=== PATIENT | male | born 1995 | race Caucasian/White ===

== ENCOUNTER 2022-11-27 01:08 | Emergency (ER) | payer OTHER, MEDICAID, SELFPAY ==
[2022-11-27 01:28] VITALS: BP 127/79; PULSE 109; RESP 17; TEMP 37.2; O2SAT 98
[2022-11-27 02:39] VITALS: BP 124/81; PULSE 103; RESP 16; O2SAT 100
[2022-11-27] MEDS: SODIUM CHLORIDE 0.9% IV 1,000 ML 999 ML IV CONT (03:20)
[2022-11-27] MEDS: BELLADONNA ALK/PHENOB ELIX 10 ML, MAG HYDROX/ALUMINUM HYD/SIMETH 30 ML, LIDOCAINE HCL 2... PO (03:21)
[2022-11-27 03:40] LABS: Basophils Percent Auto 0.3 % (0.2-1.2); Eosinophils Absolute Auto 0.1 K/mm3 (0-0.3); Eosinophils Percent Auto 0.7 % (0-4.4); Hemoglobin 14.1 g/dL (14.0-18.0); Immature Granulocyte Absolute 0.03 K/mm3 (0.00-0.031); Immature Granulocyte Percent A 0.3 % (0-0.5); Lymphocytes Absolute Auto 3.31 K/mm3 (0.9-3.2); Lymphocytes Percent Auto 38.3 % (18.3-44.2); Mean Corpuscular HGB Conc 32.8 g/dl (32-36); Mean Corpuscular Volume 91.5 fl (80-100); Mean Platelet Volume 9.8 fl (7.4-10.4); Neutrophils Absolute Auto 4.3 K/mm3 (1.3-6.7); Neutrophils Percent Auto 49.4 % (45.5-73.1); Platelet Count Result 257 k/mm3 (150-375); White Blood Count 8.7 K/mm3 (4.5-10.0)
[2022-11-27 03:50] LABS: Lactic Acid Reflex 1.1 mmol/L (0.7-2.0)
--- NOTE | 2022-11-27 04:11 | ED.GENADULT ---
HPI - General Adult General Chief complaint: Dental/Oral Stated complaint: mouth pain, unalbe to eat Time Seen by Provider: 11/27/22 02:53 History of Present Illness HPI narrative: Who presents the emergency department with chief complaint of sore throat and mouth pain. The patient reports he was recently seen by his primary care provider diagnosed with pharyngitis started on steroids and also started on an antibiotic. The patient states that he has noticed that his gums have become sore his tongue is sore and his mouth has been uncomfortable the patient states it hurts whenever he eats and drinks patient states that he is still able to swallow his own secretions patient reports that he tested negative for COVID and negative for strep in the office Related Data Home Medications Medication Instructions Recorded Confirmed amoxicillin 875 mg-potassium tablet 11/27/22 clavulanate 125 mg tablet prednisone 20 mg tablet mg 11/27/22 Allergies Allergy/AdvReac Type Severity Reaction Status Date / Time No Known Allergies Allergy Verified 11/27/22 01:32 Review of Systems Review of Systems: A 10 system review of systems was completed on the patient and is negative except for what is stated in the HPI. Nursing and ancillary documentation was reviewed. Exam Narrative: GENERAL: Well-appearing, well-nourished, and in no acute distress. HEAD: Normocephalic, atraumatic. EYES: PERRLA and EOMI. ENT: Nares clear, no rhinorrhea or epistaxis. Mucous membranes moist. Slight ulcerations present in the mouth NECK: Supple. CHEST: Clear to auscultation. No respiratory distress. HEART: Regular rate and rhythm. No murmur heard. Normal peripheral pulses. ABDOMEN: Soft, nontender, nondistended, normal active bowel sounds. EXTREMITIES: Normal range of motion. No edema. SKIN: Warm, dry, no rash. NEURO: No focal deficits. Alert and oriented x3. PSYCH: Normal mood and affect. Course Vital Signs Vital signs: Vital Signs Temperature 37.2 C 11/27/22 01:28 Pulse Rate 109 H 11/27/22 01:28 Respiratory Rate 17 11/27/22 01:28 Blood Pressure 127/79 11/27/22 01:28 Pulse Oximetry 98 11/27/22 01:28 Oxygen Delivery Room Air 11/27/22 01:28 Temperature 37.2 C 11/27/22 01:28 Pulse Rate 92 11/27/22 04:24 Respiratory Rate 16 11/27/22 04:24 Blood Pressure 124/73 11/27/22 04:24 Pulse Oximetry 100 11/27/22 04:24 Oxygen Delivery Room Air 11/27/22 01:28 Medical Decision Making MDM Narrative Medical decision making narrative: Differential diagnosis includes strep pharyngitis, peritonsillar abscess, retropharyngeal abscess. Gingivostomatitis mono Patient's exam was not consistent with retropharyngeal abscess or peritonsillar abscess. Patient's laboratory studies showed normal electrolytes CBC white count was 8.7. Monotest was negative Patient received IV fluids and was given lidocaine and a GI cocktail. Vital Signs Vital Signs: Vital Signs Temperature 37.2 C 11/27/22 01:28 Pulse Rate 109 H 11/27/22 01:28 Respiratory Rate 17 11/27/22 01:28 Blood Pressure 127/79 11/27/22 01:28 Pulse Oximetry 98 11/27/22 01:28 Oxygen Delivery Room Air 11/27/22 01:28 Temperature 37.2 C 11/27/22 01:28 Pulse Rate 92 11/27/22 04:24 Respiratory Rate 16 11/27/22 04:24 Blood Pressure 124/73 11/27/22 04:24 Pulse Oximetry 100 11/27/22 04:24 Oxygen Delivery Room Air 11/27/22 01:28 Lab Data 11/27/22 03:28 11/27/22 03:28 Labs: Lab Results 11/27/22 11/27/22 11/27/22 Range/Units 03:28 03:28 03:28 WBC 8.7 (4.5-10.0) K/mm3 RBC 4.70 (4.6-6.20) M/mm3 Hgb 14.1 (14.0-18.0) g/dL Hct 43.0 (42.0-52.0) % MCV 91.5 (80-100) fl MCH 30.0 (26-34) pg MCHC 32.8 (32-36) g/dl RDW 12.0 (11.5-14.5) % Plt Count 257 (150-375) k/mm3 MPV 9.8 (7.4-10.4) fl Immature Gran % (Auto) 0.3 (0-0.5) % Neut % (Auto)
[2022-11-27 04:15] LABS: Alanine Aminotransferase 48 U/L (6-50); Albumin Level 4.3 g/dL (3.5-5.1); Alkaline Phosphatase 89 U/L (38-126); Anion Gap 5 mmol/L (8-16); Aspartate Amino Transferase 24 U/L (17-59); Bilirubin,Total 0.5 mg/dL (0.2-1.3); Blood Urea Nitrogen 13 mg/dL (9-20); Carbon Dioxide 35 mmol/L (22-30); Chloride 99 mmol/L (98-107); Estimated CRCL calculation 137 ml/min; Estimated Glomerular Filt Rate > 60; Glucose 97 mg/dL (65-110); Potassium 3.5 mmol/L (3.4-5.0); Sodium 139 mmol/L (137-145)
[2022-11-27 04:23] LABS: Platelet Estimate Adequate (Adequate)
[2022-11-27 04:24] VITALS: BP 124/73; PULSE 92; RESP 16; O2SAT 100
[2022-11-27 04:24] LABS: Anisocytosis 1+ (NORMAL); Atypical Lymphocytes Present; Monoscreen Negative (Negative); Negative Monotest Control Negative (Negative); Positive Monotest Control Positive (Positive); Schistocytes None Seen (NORMAL)
== END 2022-11-27 05:18 | disposition home or self-care (01) ==
PROVIDERS: Emergency Provider Emergency Medicine
DX: K05.10 Chronic gingivitis, plaque induced (principal)
CPT/HCPCS: 36415; 80053; 83605; 85025; 86308; 96361; 96374; 99284; A9270; J1100; J7030

== ENCOUNTER 2024-08-15 14:31 | Emergency (ER) | payer OTHER, MEDICAID, SELFPAY ==
[2024-08-15 15:05] VITALS: BP 101/72; PULSE 97; RESP 16; TEMP 36.6; O2SAT 99
--- NOTE | 2024-08-15 15:05 | ECG_ITS ---
Test Date: 2024-08-15 15:26:32 Measurements Intervals [place] Rate: 108 P: 72 OK: 110 QRS: 82 QRSD: 89 T: 63 QT: 326 QTc: 439 Interpretive Statements SINUS TACHYCARDIA WITH SHORT OK INTERVAL ABNORMAL RHYTHM ECG No previous ECG available for comparison Electronically Signed On 08-19-2024 14:34:20 ANIMATION ARTIST by Weston Ayala M.D.
--- NOTE | 2024-08-15 15:06 | ED.NAVMDI ---
HPI - Nausea/Vomiting/Diarrhea General Chief complaint: Nausea/Vomiting/Diarrhea Stated complaint: N/V/Zr3stox, food poisoning? Focused HPI: 29-year-old male presents to the emergency department via EMS for N/V/D that started this morning. Patient states he has multiple bouts of diarrhea and vomiting. States he was in the bathroom when he began to feel very lightheaded and had cold sweats felt like he was about to pass out. States he stumbled into his bedroom and hit his left lafleur on a wall obtained a laceration to the left lafleur. Last Tdap unknown. States he then began to feel tingling all over and contacted EMS was transported to the ED. He notes that he was diagnosed with mono 2 weeks ago. He denies any abdominal pain, fever. GENERAL: Well-appearing, well-nourished, and in no acute distress. HEAD: Normocephalic, atraumatic. CHEST: Clear to auscultation. ?No respiratory distress. HEART: Regular rate and rhythm.? NEURO: ?Alert and oriented x3. Patient screened in triage and initial orders placed.? ?Additional care and disposition to be based upon?diagnostic testing and treatment. Related Data Home Medications ?Medication ?Instructions ?Recorded ?Confirmed ?Last Taken ?Type amoxicillin 875 mg-potassium tablet 11/27/22 Unknown History clavulanate 125 mg tablet prednisone 20 mg tablet mg 11/27/22 Unknown History Allergies Allergy/AdvReac Type Severity Reaction Status Date / Time No Known Allergies Allergy Verified 11/27/22 01:32 Course Vital Signs Vital signs: Vital Signs Temperature 97.9 F 08/15/24 15:05 Pulse Rate 97 08/15/24 15:05 Respiratory Rate 16 08/15/24 15:05 Blood Pressure 101/72 08/15/24 15:05 Pulse Oximetry 99 08/15/24 15:05 Oxygen Delivery Room Air 08/15/24 15:05 Temperature 97.6 F 08/15/24 17:43 Pulse Rate 108 H 08/15/24 17:43 Respiratory Rate 18 08/15/24 17:43 Blood Pressure 135/110 H 08/15/24 17:43 Pulse Oximetry 100 08/15/24 17:43 Oxygen Delivery Room Air 08/15/24 15:05 MDM - Nausea/Vomiting/Diarrhea Lab Data 08/15/24 15:26 08/15/24 15:26 Labs: Lab Results 08/15/24 Range/Units 15:26 WBC 15.4 H (4.5-10.0) K/mm3 RBC 4.60 (4.6-6.20) M/mm3 Hgb 14.4 (14.0-18.0) g/dL Hct 42.2 (42.0-52.0) % MCV 91.7 (80-100) fl MCH 31.3 (26-34) pg MCHC 34.1 (32-36) g/dl RDW 12.9 (11.5-14.5) % Plt Count 205 (150-375) k/mm3 MPV 9.3 (7.4-10.4) fl Immature Gran % (Auto) 0.5 (0-0.5) % Neut % (Auto) 87.8 H (45.5-73.1) % Lymph % (Auto) 5.7 L (18.3-44.2) % [place] % (Auto) 5.5 (2.6-8.5) % Eos % (Auto) 0.3 (0-4.4) % Baso % (Auto) 0.2 (0.2-1.2) % Lymph # (Auto) 0.88 L (0.9-3.2) K/mm3 [place] # (Auto) 0.8 H (0.1-0.6) K/mm3 Eos # (Auto) 0.1 (0-0.3) K/mm3 Baso # (Auto) 0.0 (0.0-0.1) K/mm3 Abs Immat Gran (auto) 0.07 H (0.00-0.031) K/mm3 Absolute Neuts (auto) 13.5 H (1.3-6.7) K/mm3 Absolute Nucleated RBC 0.000 (0.0-0.012) K/mm3 Nucleated RBC % 0.0 (0.0-0.2) % Sodium 136 L (137-145) mmol/L Potassium 4.4 (3.4-5.0) mmol/L Chloride 107 (98-107) mmol/L Carbon Dioxide 26 (22-30) mmol/L Anion Gap 3 L (4-12) mmol/L BUN 12 (9-20) mg/dL Creatinine 0.80 (0.7-1.3) mg/dL Estim Creat Clear Calc 119 ml/min Estimated GFR > 60 (59 - ) Glucose 112 H (65-110) mg/dL Calcium 9.1 (8.4-10.2) mg/dL Total Bilirubin 0.6 (0.2-1.3) mg/dL AST 23 (17-59) U/L ALT 25 (6-50) U/L Alkaline Phosphatase 74 (38-126) U/L Total Protein 8.0 (6.3-8.2) g/dL Albumin 4.6 (3.5-5.1) g/dL Lipase 117 (23-300) U/L Influenza A (RT-PCR) Negative (Negative) Influenza B (RT-PCR) Negative (Negative) RSV (RT-PCR) Negative (Negative) SARS-CoV-2 RNA (RT-PCR) Negative (Negative) Discharge Plan Discharge Clinical Impression: Pre-syncope, Laceration Patient Disposition: Elopement After Seen by Prov Condition: Stable Patient Language: Frisian Prescriptions: No Action prednisone 20 mg tablet amoxicillin-pot clavulanate 875-125 mg tablet lidocaine HCl [Lidocaine Viscous] 2 % solution 1 applic mucous membrane QID PRN (Reason: pain) Qty: 100 0RF prednisone 20 mg tablet 40 mg PO DAILY 5 Days Qty: 10 0RF Follow-up/Referrals: UNKNOWN,DOCTOR [Primary Care Provider] -
[2024-08-15 15:31] LABS: Basophils Percent Auto 0.2 % (0.2-1.2); Eosinophils Absolute Auto 0.1 K/mm3 (0-0.3); Eosinophils Percent Auto 0.3 % (0-4.4); Hematocrit 42.2 % (42.0-52.0); Hemoglobin 14.4 g/dL (14.0-18.0); Immature Granulocyte Absolute 0.07 K/mm3 (0.00-0.031); Immature Granulocyte Percent A 0.5 % (0-0.5); Lymphocytes Absolute Auto 0.88 K/mm3 (0.9-3.2); Lymphocytes Percent Auto 5.7 % (18.3-44.2); Mean Corpuscular HGB Conc 34.1 g/dl (32-36); Mean Corpuscular Hemoglobin 31.3 pg (26-34); Mean Corpuscular Volume 91.7 fl (80-100); Mean Platelet Volume 9.3 fl (7.4-10.4); Monocytes Absolute Auto 0.8 K/mm3 (0.1-0.6); Monocytes Percent Auto 5.5 % (2.6-8.5); Neutrophils Absolute Auto 13.5 K/mm3 (1.3-6.7); Neutrophils Percent Auto 87.8 % (45.5-73.1); Platelet Count Result 205 k/mm3 (150-375); Red Cell Distribution Width 12.9 % (11.5-14.5); White Blood Count 15.4 K/mm3 (4.5-10.0)
[2024-08-15 15:39] LABS: Alanine Aminotransferase 25 U/L (6-50); Albumin Level 4.6 g/dL (3.5-5.1); Alkaline Phosphatase 74 U/L (38-126); Anion Gap 3 mmol/L (4-12); Aspartate Amino Transferase 23 U/L (17-59); Bilirubin,Total 0.6 mg/dL (0.2-1.3); Blood Urea Nitrogen 12 mg/dL (9-20); Calcium 9.1 mg/dL (8.4-10.2); Carbon Dioxide 26 mmol/L (22-30); Chloride 107 mmol/L (98-107); Estimated CRCL calculation 119 ml/min; Estimated Glomerular Filt Rate > 60; Glucose 112 mg/dL (65-110); Lipase 117 U/L (23-300); Potassium 4.4 mmol/L (3.4-5.0); Sodium 136 mmol/L (137-145)
[2024-08-15 16:06] LABS: Influenza A QL RT-PCR Negative (Negative); Influenza B QL RT-PCR Negative (Negative); RSV RNA, RT-PCR Negative (Negative); SARS-CoV-2 RNA PCR Negative (Negative)
[2024-08-15 17:43] VITALS: BP 135/110; PULSE 108; RESP 18; TEMP 36.4; O2SAT 100
--- NOTE | 2024-08-15 18:31 | PC.NURSE ---
pt left due to wait time. EMS placed IV before arrival, IV removed.
== END 2024-08-15 19:25 | disposition left against medical advice (07) ==
LOC: ANHED 18:38
PROVIDERS: Emergency Provider Physician Assistant
DX: R55 Syncope and collapse (principal); S81.812A Laceration without foreign body, left lower leg, initial encounter; Z23 Encounter for immunization; W22.01XA Walked into wall, initial encounter
CPT/HCPCS: 36415; 80053; 83690; 85025; 87637; 90471; 93005; 99283